=== PATIENT | female | born 1975 | race African-American/Black ===

== ENCOUNTER 2017-01-11 05:15 | Day surgery (SDC) | payer BC ==
[2017-01-06 10:48] VITALS: BMI 29.2
[2017-01-11] MEDS ORDERED: LIDOCAINE HCL/PF 2% SDV 5ML VIAL ONE (09:09)
[2017-01-11] MEDS ORDERED: ceFAZolin SODIUM 1 GM VIAL ONE (09:09)
[2017-01-11] MEDS ORDERED: MIDAZOLAM HCL 2 MG/2 ML SINGLE DOSE VIAL ONE (09:09)
[2017-01-11] MEDS ORDERED: PROPOFOL 20 ML ONE (09:09)
[2017-01-11] MEDS ORDERED: IBUPROFEN 800 MG/8 ML IJ IVPB ONE (09:12)
[2017-01-11] MEDS ORDERED: DESFLURANE GAS 240 ML BOTTLE IH ONE (09:13)
[2017-01-11] MEDS ORDERED: ceFAZolin SODIUM 1 GM VIAL IVPB ONE (09:30)
[2017-01-11] MEDS ORDERED: ONDANSETRON 4 MG/2 ML VIAL ONE ×2 (09:42→15:50)
[2017-01-11] MEDS ORDERED: PREMIXED IVPB ONE (09:44)
[2017-01-11] MEDS ORDERED: METRONIDAZOLE 500 MG IVPB ONE (09:44)
[2017-01-11] MEDS ORDERED: oxyCODONE HCL 5 MG TABLET PO PRN ×2 (10:19→11:30)
[2017-01-11] MEDS ORDERED: ONDANSETRON 4 MG/2 ML VIAL IVPUSH PRN (10:19)
[2017-01-11] MEDS ORDERED: ACETAMINOPHEN 1000 MG/100 ML VIAL (NON FORMULARY) IVPB ONE (10:21)
[2017-01-11] MEDS ORDERED: LACTATED RINGERS SOLUTION 1,000 ML IV SCH (10:30)
--- NOTE | 2017-01-11 11:10 | HP ---
History & Physical Update - History History: No Change - Physical Physical: No Change - Assessment Assessment: No Change - Plan Plan: No Change (Planned Hysteroscopy, Polypectomy, D&C, Endometrial ablation)
--- NOTE | 2017-01-11 11:29 | OP ---
Operative Note - Note: Operative Date: 01/11/17 Pre-Operative Diagnosis: 41 yo P3 with thick endometrium, possible polyp, menorhagia, anemia Operation: Hysteroscopy, polypectomy, Endometrial ablation Findings: 1. 16week size multifibroid uterus 2. Thick endometrium with multiple polyps 3. Bilateral ostia visualized 4. Completed HTA cycle Post-Operative Diagnosis: Same as Pre-op Surgeon: Ida Sahu Anesthesiologist/INNER TUBE TUBER MACHINE OPERATOR: Shellie Guillen Anesthesia: MAC Specimens Removed: 1. Endometrial polyps and curettings Estimated Blood Loss (mls): 0 Instrument used (Debridements only): TruClear System, HTA ablation Drains & Tubes with Location: Fluid deficit 230cc Drains, Volume Out (mls): 75 Fluid Volume Replaced (mls): 400 Operative Report Dictated: Yes
[2017-01-11] MEDS ORDERED: IBUPROFEN 600 MG TABLET (FP) PO PRN (11:30)
[2017-01-11] MEDS ORDERED: IBUPROFEN 800 MG/8 ML IJ IVPB PRN (11:30)
[2017-01-11] MEDS ORDERED: ONDANSETRON 4 MG/2 ML VIAL IVPB PRN (11:30)
[2017-01-11] MEDS ORDERED: ELECTROLYTE-148 SOLN 1,000 ML IV SCH (11:30)
[2017-01-11] MEDS ORDERED: oxyCODONE HCL 5 MG TABLET ONE (13:36)
[2017-01-11] MEDS ORDERED: oxyCODONE HCL 5 MG TABLET PO ONE (13:42)
[2017-01-11 13:44] VITALS: TEMP 98.7
[2017-01-11 15:49] VITALS: BP 125/78; PULSE 64
[2017-01-11] MEDS ORDERED: ONDANSETRON 4 MG/2 ML VIAL IVPB ONE (16:08)
--- NOTE | 2017-01-12 13:19 | PATH ---
Surgical Pathology Report Patient Name: KELY WAGNER [facility]. Rec. #: [id number] /Age/Gender: 1975 (Age: 41) / F Account: [id number] Location: [facility] Taken: 01/11/2017 Received: 01/11/2017 Reported: 01/12/2017 Physicians: Ida Sahu M.D. Specimen(s) Received ENDOMETRIAL CURETTINGS AND POLYP Clinical History Fibroid uterus Final Diagnosis ENDOMETRIUM, POLYP AND CURETTAGE: FRAGMENTS OF DISORDERED PROLIFERATIVE ENDOMETRIUM WITH STROMAL AND GLANDULAR BREAKDOWN CHANGES AND FOCAL AREAS SUGGESTIVE OF ENDOMETRIAL POLYP. Electronically Signed Moisés Gentile M.D. Gross Description Received in formalin labelled "endometrial polyp endometrial curetting" is a 2.5 x 2.0 x 0.3 cm aggregate of [place] tissue fragments. Totally submitted in one cassette. [facility]/01/11/2017 [facility]/01/11/2017
--- NOTE | 2017-01-13 08:38 | OP ---
DATE OF OPERATION: 01/11/2017 PREOPERATIVE DIAGNOSES: A 41-year-old para 3 with thick endometrium, possible polyp, menorrhagia, anemia. OPERATION: Hysteroscopy, polypectomy, endometrial ablation. FINDINGS: A [id number], multi-fibroid uterus; thick endometrium with multiple polyps. Bilateral ostia visualized. Completed HTA (Gu[place]ford ThermAblator) cycle. POSTOPERATIVE DIAGNOSES: A 41-year-old para 3 with thick endometrium, possible polyp, menorrhagia, anemia. SURGEON: Ida Sahu MD ANESTHESIOLOGIST: Shellie Guillen MD ANESTHESIA: MAC. SPECIMEN REMOVED: Endometrial polyps and curettings. DESCRIPTION OF OPERATIVE PROCEDURE: After assuring informed consent and explaining all risks, benefits, and alternatives to the patient, consent was signed and witnessed, and patient was brought to the operating room where she was placed in dorsal lithotomy position. Perineum was prepped and draped in sterile fashion as well as the vagina, and 5-mm TruClear hysteroscope was assembled and primed. The Bailey speculum was placed intravaginally, and anterior cervical lip was articulated with single-tooth tenaculum. The cervix was dilated with nibqfjgjv-egiojfmtfc-pw-size Brown dilators up to size 17 gauge to accommodate a 5-mm 30-degree scope. Above findings were noted. Polypoid tissue and thick endometrium was noted. The TruClear 3-mm resecting device was introduced through the 5-mm scope, and all polypoid tissue as well as endometrium was resected circumferentially with good visualization of endometrial cavity and excellent hemostasis. Subsequently, the TruClear hysteroscope was removed, and HTA ablation system with ACMI scope was introduced into the uterine cavity. The Gu[place] Therm ablation cycle was completed without any egression of the fluid, with good protection of the vaginal laughlin. Subsequently, cooling cycle was accomplished, and the observation of the intrauterine contents confirmed excellent ablative cycle completed. All instruments and sponges were removed from patient's vagina. Instrument, sponge count was correct x2. Estimated blood loss was 0 mL. Fluid deficit 230 mL; 75 mL of urine were drained from the patient's bladder. Patient received 400 mL of IV fluids. She tolerated the procedure well, was awoken from anesthesia, and brought to the recovery room in stable condition. [id number] [id number]
== END 2017-01-11 17:02 | disposition home or self-care (01) ==
LOC: JASU-SURG 05:15
PROVIDERS: ATTEND Obstetrics & Gynecology
PROC: 0U5B8ZZ Destruction of Endometrium, Via Natural or Artificial Opening Endoscopic (ICD-10-PCS; 2017-01-11)
PROC: 0UB98ZX Excision of Uterus, Via Natural or Artificial Opening Endoscopic, Diagnostic (ICD-10-PCS; principal; 2017-01-11 09:00)
PROC: 0UDB8ZX Extraction of Endometrium, Via Natural or Artificial Opening Endoscopic, Diagnostic (ICD-10-PCS; 2017-01-11 09:00)
DX: N92.0 Excessive and frequent menstruation with regular cycle (principal); D25.9 Leiomyoma of uterus, unspecified; N84.0 Polyp of corpus uteri
CPT/HCPCS: 84703; 88305-TC; 94760